=== PATIENT | male | born 1935 | race Caucasian/White ===

== ENCOUNTER 2019-01-22 10:26 | Inpatient (IN) ==
[2019-01-22] MEDS ORDERED: 0.9 % SODIUM CHLORIDE 1,000 ML IV ONE (10:31)
--- NOTE | 2019-01-22 10:39 | Emergency Department Note ---
Altered Mental Status HPI - General Chief Complaint: Altered Mental Status Stated Complaint: altered mental status, fall? Time Seen by Provider: 01/22/19 10:36 Source: patient, EMS Mode of arrival: EMS Limitations: altered mental status - History of Present Illness HPI Narrative: This patient was apparently found down on the floor by his son EMS was called and he was brought to the hospital. Patient has altered mental status and cannot communicate with us. He apparently has a history of dementia. It appears he has been laying on the floor for quite a long time. He has some breakdown in the back. Family thinks they saw him normally yesterday some time. They are not here yet to give us any history. - Related Data Previous Rx's Medication Instructions Recorded lisinopril 5 mg tablet 5 mg PO QDAY #90 tab 02/15/18 finasteride 5 mg tablet 5 mg PO QDAY #90 tab 09/27/18 Allergies Allergy/AdvReac Type Severity Reaction Status Date / Time No Known Drug Allergies Allergy Verified 01/22/19 10:30 Review of Systems Limitations: ROS unobtainable due to patients medical condition Past Medical History - Past Medical History [facility] Narrative: Medical History (Last Reviewed 01/10/17 @ 09:19 by Ankur Cohen PA-C) Past history of chewing tobacco use (Chronic) Vitamin D deficiency (Chronic 08/24/13) Prediabetes (Chronic 09/24/13) Personal history of urinary calculi (Chronic) Nocturia (Chronic) Microalbuminuria (Chronic) Hypertensive renal disease (Chronic 07/04/13) Hyperlipidemia (Chronic) Hyperkalemia (Chronic) Left knee pain (Chronic) Actinic keratosis (Chronic) Back pain (Chronic) BPH loc w urin obs/LUTS (Chronic) CKD (chronic kidney disease), stage III (Chronic) Hypertension, essential (Chronic) DJD (degenerative joint disease) (Chronic) Hypertensive chronic kidney disease (Chronic) Past Surgical History (Last Reviewed 01/10/17 @ 09:19 by EARL Munoz) H/O colonoscopy (Chronic) History of back surgery (Chronic ~2002) History of herniorrhaphy (Chronic ~2006) History of kidney surgery (Chronic ~1960) History of renal stent (Chronic ~1980) Family History (Last Reviewed 01/10/17 @ 09:19 by Ankur Cohen PA-C) Mother Diabetes Hypertension, essential Father CKD (chronic kidney disease) Sister Cancer - Social History smoking status: Smokeless tobacco Physical Exam Patient has some redness and beginning of some breakdown in the thoracic spine region. He is uncooperative for exam. He is holding both arms fairly tight and will not allow range of motion. Range of motion of the hips appears okay. Limitations: altered mental status General appearance: in no apparent distress Head: atraumatic, normocephalic Eye: Present: normal appearance ENT: Present: mucous membranes dry Neck: Absent: tenderness Chest: Present: normal inspection Respiratory: Present: normal lung sounds bilaterally Cardiovascular: Present: regular rate, normal rhythm, normal heart sounds Abdominal: Present: soft. Absent: distention, tenderness Course Vital Signs Temperature 97.9 F 01/22/19 10:27 Pulse Rate 92 H 01/22/19 10:27 Respiratory Rate 18 01/22/19 10:27 Blood Pressure 157/65 01/22/19 10:27 Pulse Oximetry (%) 98 01/22/19 10:27 Temperature 97.9 F 01/22/19 10:27 Pulse Rate 78 01/22/19 13:16 Respiratory Rate 17 01/22/19 13:16 Blood Pressure 137/97 01/22/19 13:16 Pulse Oximetry (%) 100 01/22/19 13:16 Altered Mental Status - MDM Narrative Medical decision making narrative: This patient probably has urosepsis and has been covered with Levaquin and will be admitted to the hospital by Dr. Jeffers. He does have some hydroureter and Dr. Vines said he would be happy to consult on the patient. - Lab Data Lab results reviewed: Yes I reviewed the patient's lab results. Result diagrams: 01/22/19 10:52 01/22/19 10:52 Lab Results 01/22/19 01/22/19 01/22/19 Range/Units 10:30 10:52 10:52 WBC 15.1 H (4.5-11.0) K/mcL RBC 2.93 L (4.50-5.90) M/mcL Hgb 8.1 L (13.5-16.5) g/dL Hct 25.0 L (41.0-55.0) % MCV 85.4 (80.0-100.0) fL MCH 27.8 (26.0-34.0) pg MCHC 32.5 (31.0-36.0) g/dL RDW 14.3 (11.5-14.5) % Plt Count 404 (140-440) K/mcL MPV 6.6 L (7.4-10.4) fL Total Counted 100 Seg Neutrophils % 82 H (38-78) % Band Neutrophils % 1 (0-10) % Lymphocytes % 7 L (15-49) % Monocytes % (Manual) 9 (1-12) % Basophils % (Manual) 1 (0-2) % Platelet Estimate Normal (NORMAL) RBC Morphology Abnorm A (NORMAL) Hypochromasia 2+ A (NONE SEEN) Poikilocytosis 1+ A (NONE SEEN) Ovalocytes Few A (NONE SEEN) RBC Fragments Occ A (NONE SEEN) VBG Lactic Acid (0.5-2.0) mmol/L Sodium 139 (133-145) mmol/L Potassium 5.0 (3.3-5.1) mmol/L Chloride 105 (96-108) mmol/L Carbon Dioxide 16 L (22-30) mmol/L Anion Gap 18.0 H (8-16) BUN 76 H (8-23) mg/dl Creatinine 3.5 H (0.7-1.2) mg/dl GFR Calculation 15 Glucose 114 H (70-105) mg/dL Calcium 11.5 H (8.6-10.4) mg/dl Total Bilirubin 0.3 (0.0-1.0) mg/dL AST 29 (0-37) U/l ALT < 5 (0-40) U/l Alkaline Phosphatase 96 (39-117) U/L Total Creatine Kinase 315 H (24-195) IU/L CK-MB (CK-2) 27.6 H (0-4.9) ng/ml Troponin T (0-0.03) ng/ml Total Protein 6.9 (5.9-8.4) gm/dL Albumin 3.5 (3.2-5.2) gm/dL Globulin 3.4 (2.2-3.7) gm/dL Albumin/Globulin Ratio 1.0 (1.0-2.3) PTH Intact (15-65) pg/ml Urine Color Yellow Urine Appearance Turbid Urine pH 6.0 (5.0-9.0) Ur Specific [place] 1.018 (1.000-1.035) Urine Protein 100 A (NEG) mg/dL Urine Glucose (UA) 50 A (NEG) mg/dL Urine Ketones 5/tr A (NEG) mg/dL Urine Occult Blood >=1.0 A (<0.03) mg/dL Urine Nitrate Neg (NEG) Urine Bilirubin Neg (NEG) mg/dL Urine Urobilinogen Neg (NEG) mg/dL Ur Leukocyte Esterase 75 A (NEG) /uL Urine RBC > 182 H (0-1) /hpf Urine WBC > 182 H (0-4) /hpf Ur Squamous Epith Cells 0 (0-4) /hpf Ur Transition Epith Cell 46 H (0-2) /hpf Urine Bacteria 0 (0) /hpf Urine Yeast (Budding) Many A (0) /hpf Ur Culture Indicated? Yes 01/22/19 01/22/19 01/22/19 Range/Units 10:52 10:52 10:52 WBC (4.5-11.0) K/mcL RBC (4.50-5.90) M/mcL Hgb (13.5-16.5) g/dL Hct (41.0-55.0) % MCV (80.0-100.0) fL MCH (26.0-34.0) pg MCHC (31.0-36.0) g/dL RDW (11.5-14.5) % Plt Count (140-440) K/mcL MPV (7.4-10.4) fL Total Counted Seg Neutrophils % (38-78) % Band Neutrophils % (0-10) % Lymphocytes % (15-49) % Monocytes % (Manual) (1-12) % Basophils % (Manual) (0-2) % Platelet Estimate (NORMAL) RBC Morphology (NORMAL) Hypochromasia (NONE SEEN) Poikilocytosis (NONE SEEN) Ovalocytes (NONE SEEN) RBC Fragments (NONE SEEN) VBG Lactic Acid 2.7 H (0.5-2.0) mmol/L Sodium (133-145) mmol/L Potassium (3.3-5.1) mmol/L Chloride (96-108) mmol/L Carbon Dioxide (22-30) mmol/L Anion Gap (8-16) BUN (8-23) mg/dl Creatinine (0.7-1.2) mg/dl GFR Calculation Glucose (70-105) mg/dL Calcium (8.6-10.4) mg/dl Total Bilirubin (0.0-1.0) mg/dL AST (0-37) U/l ALT (0-40) U/l Alkaline Phosphatase (39-117) U/L Total Creatine Kinase (24-195) IU/L CK-MB (CK-2) (0-4.9) ng/ml Troponin T 0.09 H* (0-0.03) ng/ml Total Protein (5.9-8.4) gm/dL Albumin (3.2-5.2) gm/dL Globulin (2.2-3.7) gm/dL Albumin/Globulin Ratio (1.0-2.3) PTH Intact 10.0 L (15-65) pg/ml Urine Color Urine Appearance Urine pH (5.0-9.0) Ur Specific [place] (1.000-1.035) Urine Protein (NEG) mg/dL Urine Glucose (UA) (NEG) mg/dL Urine Ketones (NEG) mg/dL Urine Occult Blood (<0.03) mg/dL Urine Nitrate (NEG) Urine Bilirubin (NEG) mg/dL Urine Urobilinogen (NEG) mg/dL Ur Leukocyte Esterase (NEG) /uL Urine RBC (0-1) /hpf Urine WBC (0-4) /hpf Ur Squamous Epith Cells (0-4) /hpf Ur Transition Epith Cell (0-2) /hpf Urine Bacteria (0) /hpf Urine Yeast (Budding) (0) /hpf Ur Culture Indicated? 01/22/19 Range/Units 13:52 WBC (4.5-11.0) K/mcL RBC (4.50-5.90) M/mcL Hgb (13.5-16.5) g/dL Hct (41.0-55.0) % MCV (80.0-100.0) fL MCH (26.0-34.0) pg MCHC (31.0-36.0) g/dL RDW (11.5-14.5) % Plt Count (140-440) K/mcL MPV (7.4-10.4) fL Total Counted Seg Neutrophils % (38-78) % Band Neutrophils % (0-10) % Lymphocytes % (15-49) % Monocytes % (Manual) (1-12) % Basophils % (Manual) (0-2) % Platelet Estimate (NORMAL) RBC Morphology (NORMAL) Hypochromasia (NONE SEEN) Poikilocytosis (NONE SEEN) Ovalocytes (NONE SEEN) RBC Fragments (NONE SEEN) VBG Lactic Acid (0.5-2.0) mmol/L Sodium (133-145) mmol/L Potassium (3.3-5.1) mmol/L Chloride (96-108) mmol/L Carbon Dioxide (22-30) mmol/L Anion Gap (8-16) BUN (8-23) mg/dl Creatinine (0.7-1.2) mg/dl GFR Calculation Glucose (70-105) mg/dL Calcium (8.6-10.4) mg/dl Total Bilirubin (0.0-1.0) mg/dL AST (0-37) U/l ALT (0-40) U/l Alkaline Phosphatase (39-117) U/L Total Creatine Kinase (24-195) IU/L CK-MB (CK-2) (0-4.9) ng/ml Troponin T 0.08 H* (0-0.03) ng/ml Total Protein (5.9-8.4) gm/dL Albumin (3.2-5.2) gm/dL Globulin (2.2-3.7) gm/dL Albumin/Globulin Ratio (1.0-2.3) PTH Intact (15-65) pg/ml Urine Color Urine Appearance Urine pH (5.0-9.0) Ur Specific [place] (1.000-1.035) Urine Protein (NEG) mg/dL Urine Glucose (UA) (NEG) mg/dL Urine Ketones (NEG) mg/dL Urine Occult Blood (<0.03) mg/dL Urine Nitrate (NEG) Urine Bilirubin (NEG) mg/dL Urine Urobilinogen (NEG) mg/dL Ur Leukocyte Esterase (NEG) /uL Urine RBC (0-1) /hpf Urine WBC (0-4) /hpf Ur Squamous Epith Cells (0-4) /hpf Ur Transition Epith Cell (0-2) /hpf Urine Bacteria (0) /hpf Urine Yeast (Budding) (0) /hpf Ur Culture Indicated? - Radiology Data Radiology results reviewed: Yes I reviewed the patient's radiology results. Disposition Pt seen by BR[facility]ANER/PA only: No Clinical Impression: Altered mental status, Dementia, UTI (urinary tract infection) Disposition: Xfer As Inpt ([facility]) Condition: Fair Referrals: Ankur Cohen PA-C [Primary Care Provider] - Time of Disposition: 15:01
--- NOTE | 2019-01-22 11:13 | Cat Scan Report ---
CLINICAL INFORMATION: Fall. Altered mental status. TECHNIQUE: Axial noncontrast enhanced images through the brain. Sagittal and coronal reformatted images COMPARISON: None. FINDINGS: No acute intracranial hemorrhage. There is no subdural hematoma. There is no subarachnoid hemorrhage. Basilar cisterns are negative. No intra-axial hemorrhage. There is cerebral atrophy with enlarged ventricles and superficial subarachnoid spaces. There is periventricular white matter abnormality consistent with small vessel ischemic change in this 83-year-old patient. There is a left basal ganglion lacunar Brainstem and cerebellum are negative. No focal intra-axial attenuation abnormality. No calvarial fracture. Temporal bones are negative. No basilar skull fracture. IMPRESSION: 1. Cerebral atrophy and white matter abnormality 2. No acute posttraumatic abnormality. No intracranial hemorrhage Interpreted and Authenticated by: Jovanni Sorenson 01/22/19
[2019-01-22 11:31] LABS: Hemoglobin 8.1 g/dL (13.5-16.5); Mean Cell Volume 85.4 fL (80.0-100.0); Mean Corpuscular HGB Conc 32.5 g/dL (31.0-36.0); Mean Platelet Volume 6.6 fL (7.4-10.4); Platelet Count 404 K/mcL (140-440); RBC 2.93 M/mcL (4.50-5.90); Red Cell Distribution Width 14.3 % (11.5-14.5); WBC 15.1 K/mcL (4.5-11.0)
[2019-01-22 11:54] LABS: ALT/SGPT < 5 U/l (0-40); AST/SGOT 29 U/l (0-37); Albumin 3.5 gm/dL (3.2-5.2); Alkaline Phosphatase 96 U/L (39-117); Bilirubin,Total 0.3 mg/dL (0.0-1.0); Blood Urea Nitrogen 76 mg/dl (8-23); Calcium 11.5 mg/dl (8.6-10.4); Carbon Dioxide 16 mmol/L (22-30); Chloride 105 mmol/L (96-108); Creatine Kinase 315 IU/L (24-195); Creatine Kinase MB 27.6 ng/ml (0-4.9); Globulin 3.4 gm/dL (2.2-3.7); Glomerular Filtration Rate 15; Glucose 114 mg/dL (70-105)
[2019-01-22 11:59] LABS: Band Neutrophils % 1 % (0-10); Basophils % (Manual) 1 % (0-2); Hypochromasia 2+ (NONE SEEN); Lymphocytes % 7 % (15-49); Monocytes % (Manual) 9 % (1-12); Ovalocytes FEW (NONE SEEN); Platelet Estimate NORMAL (NORMAL); Poikilocytosis 1+ (NONE SEEN); RBC Fragments OCC (NONE SEEN); RBC Morphology ABNORM (NORMAL); Segmented Neutrophils % 82 % (38-78)
--- NOTE | 2019-01-22 12:03 | XRay Report ---
INDICATION: Altered level of consciousness TECHNIQUE: Portable AP upright chest x-ray COMPARISON: None FINDINGS:Lungs appear lucent bilaterally consistent with COPD. No acute or focal pulmonary parenchymal infiltrate. No pulmonary parenchymal mass. Heart size and vascularity are normal. Emily and mediastinum are negative. There is no pleural fluid. No acute or focal abnormality. IMPRESSION: 1. Findings consistent with COPD 2. No acute or focal abnormality Interpreted and Authenticated by: Jovanni Sorenson 01/22/19
[2019-01-22 12:27] LABS: Appearance,Urine TURBID; Bacteria,Urine 0 /hpf (0); Bilirubin,Urine NEG (NEG); Color,Urine YELLOW; Culture Indicated,Urine YES; Glucose,Urine (UA) 50 mg/dL (NEG); Ketones,Urine 5/TR mg/dL (NEG); Leukocyte Esterase,Urine 75 /uL (NEG); Nitrate,Urine NEG (NEG); Protein,Urine 100 mg/dL (NEG); Specific Gravity,Urine 1.018 (1.000-1.035); Urine Blood >=1.0 mg/dL (<0.03); Urine Budding Yeast MANY /hpf (0); Urine RBC > 182 /hpf (0-1); Urine Squamous Epithelial Cell 0 /hpf (0-4); Urine Transitional Epi Cells 46 /hpf (0-2); Urine WBC > 182 /hpf (0-4); Urobilinogen,Urine NEG (NEG)
--- NOTE | 2019-01-22 13:03 | Cat Scan Report ---
CLINICAL INFORMATION: Altered level of consciousness. Hematuria TECHNIQUE: Noncontrast enhanced images through the chest, abdomen, pelvis. Sagittal and coronal reformatted images COMPARISON: None. FINDINGS: Chest CT: Suboptimal evaluation as the patient was unable or unwilling to move his hands and arms from in front of his chest. There are noncalcified pulmonary parenchymal nodules: - 7 mm left upper lobe, image 44 - 10 mm left lower lobe, image 55 - 3 mm right upper lobe, image 62 - 4 mm right upper lobe, image 68 - 6 mm right middle lobe, image 96 Fleischner Society recommendations: CT follow-up in 3-6 months and 18-24 months. Probable centrilobular emphysema. No paraseptal emphysema. There is no honeycombing. There is no significant thickening of the intralobular septa. No focal consolidation. There is no significant pleural fluid. There is no pericardial fluid. There is coronary artery calcification. No hilar or mediastinal lymphadenopathy. There is no supraclavicular or axillary adenopathy. Thoracic vertebral bodies are negative. No compression fractures. No lytic lesions. No sternal or rib lesions. ABDOMEN, PELVIS: Liver is negative to the limits of noncontrast enhanced examination. Gallbladder is present. There are calcified gallstones. No dilated bile ducts. Spleen is negative. There is no splenomegaly. Adrenal glands are negative. No detectable pancreatic mass. There is a Moya catheter in the urinary bladder. Urinary bladder is not well evaluated on this noncontrast enhanced examination. Findings are suggestive of enlarged prostate and probable intravesical hematoma. There is no bladder calculus. There are surgical clips in the left side of the pelvis. There is marked hydroureter bilaterally. Ureters are dilated to the level of the urinary bladder. Renal pelves are dilated. Intrarenal collecting systems are mildly dilated. Kidneys are mildly atrophic. No renal or ureteral calculi identified. No detectable renal mass on this noncontrast enhanced examination. There is fecal material within the colon. No dilated small bowel. No evidence for mechanical small bowel obstruction. There is calcification of the abdominal aorta. No abdominal aortic aneurysm. There is no free intraperitoneal fluid. No intra-abdominal abscess. There is no pneumoperitoneum. No biliary or portal venous gas. Lumbar spine is negative. No compression deformities. There are no sclerotic or lytic lesions. Sacrum and pelvis are negative. IMPRESSION: 1. Noncalcified pulmonary parenchymal nodules. Follow-up recommendations given above 2. Hydronephrosis and marked hydroureter. Ureters are dilated to the urinary bladder. 3. There is a Moya catheter within the bladder. Findings are consistent with enlarged prostate and probable intravesical hematoma. 4. Cholelithiasis Interpreted and Authenticated by: Jovanni Sorenson 01/22/19
[2019-01-22] MEDS ORDERED: LEVOFLOXACIN 750 MG/150 ML BAG IV ONE (13:18)
--- NOTE | 2019-01-22 15:02 | Internal Med History&Physical ---
Medical - H&P: [facility] Patient information: Note initiated : 01/22/19 at 3:00 pm Service Date, if different from initiated Date: [] Patient: Chan Tineo a 83 y/o M admitted on for altered mental status, fall?. Chief Complaint: [] History of present illness: Mr. Tineo is a 83 year old M Who presents to the ED after being found down on a hard laminate floor on his back by family. Family last check on him yesterday. Patient was incontinent of stool and urine. Patient was altered in the ED, does have a history of dementia but per family normally conversant and ambulatory. In the ED he was found to have significant elevated creatinine. Last labs to compare 2013. Elevated calcium. Mildly elevated creatinine kinase. Urine concerning for urinary tract infection. Elevated lactate 2.7. Elevated WBCs without bandemia. Imaging revealed different bilateral hydronephrosis and hydroureter, with possible intravesicular hematoma. Patient has had intermittent hematuria for months but refused to see a provider. Case was discussed with Dr. Vines who will see the patient. Unable to gather any history or review of systems from the patient given his altered state. Medical - H&P: [facility] Medical history: Medical History (Last Reviewed 01/10/17 @ 09:19 by Ankur Cohen PA-C) Past history of chewing tobacco use (Chronic) Vitamin D deficiency (Chronic 08/24/13) Prediabetes (Chronic 09/24/13) Personal history of urinary calculi (Chronic) Nocturia (Chronic) Microalbuminuria (Chronic) Hypertensive renal disease (Chronic 07/04/13) Hyperlipidemia (Chronic) Hyperkalemia (Chronic) Left knee pain (Chronic) Actinic keratosis (Chronic) Back pain (Chronic) BPH loc w urin obs/LUTS (Chronic) CKD (chronic kidney disease), stage III (Chronic) Hypertension, essential (Chronic) DJD (degenerative joint disease) (Chronic) Hypertensive chronic kidney disease (Chronic) Past Surgical History (Last Reviewed 01/10/17 @ 09:19 by EARL Munoz) H/O colonoscopy (Chronic) History of back surgery (Chronic ~2002) History of herniorrhaphy (Chronic ~2006) History of kidney surgery (Chronic ~1960) History of renal stent (Chronic ~1980) Family History (Last Reviewed 01/10/17 @ 09:19 by Ankur Cohen PA-C) Mother Diabetes Hypertension, essential Father CKD (chronic kidney disease) Sister Cancer Social history: Smokeless tobacco Lives alone Denies alcohol per notes Medical - H&P: Meds Home Medications Medication Instructions Recorded Confirmed Type lisinopril 5 mg tablet 5 mg PO QDAY #90 tab 02/15/18 Rx finasteride 5 mg tablet 5 mg PO QDAY #90 tab 09/27/18 Rx Allergies Allergy/AdvReac Type Severity Reaction Status Date / Time No Known Drug Allergies Allergy Verified 01/22/19 10:30 Medical - H&P: Exam - Constitutional Vitals: Temp Pulse Resp BP Pulse Ox 97.9 F 78 17 137/97 100 01/22/19 10:27 01/22/19 13:16 01/22/19 13:16 01/22/19 13:16 01/22/19 13:16 Exam: General: Drowsy but awakens, No acute Distress, cachectic Eyes/N/T: PEERL, DMM Head/Neck: neck supple, normocephalic atraumatic CV: RRR, No murmurs, normal s1/s2 Pulm: Clear b/l, no wheezing/rhonchi/rales Abd: soft, nontender, +BS x4 Ext: no clubbing/cyanosis/edema Neuro: drowsy, partially opens eyes to voice, does not follow commands, moves extremities to touch skin: warm/dry Medical - H&P: Reslt - Labs CBC & Chem 7: 01/22/19 10:52 01/22/19 10:52 Labs: Short CBC 01/22/19 Range/Units 10:52 WBC 15.1 H (4.5-11.0) K/mcL Hgb 8.1 L (13.5-16.5) g/dL Hct 25.0 L (41.0-55.0) % Plt Count 404 (140-440) K/mcL BMP 01/22/19 10:52 Sodium 139 Potassium 5.0 Chloride 105 Carbon Dioxide 16 L BUN 76 H Creatinine 3.5 H Glucose 114 H Calcium 11.5 H Cardiac Enzymes 01/22/19 01/22/19 01/22/19 Range/Units 10:52 10:52 13:52 Total Creatine Kinase 315 H (24-195) IU/L CK-MB (CK-2) 27.6 H (0-4.9) ng/ml Troponin T 0.09 H* 0.08 H* (0-0.03) ng/ml Liver Function 01/22/19 Range/Units 10:52 Total Bilirubin 0.3 (0.0-1.0) mg/dL AST 29 (0-37) U/l ALT < 5 (0-40) U/l Alkaline Phosphatase 96 (39-117) U/L Albumin 3.5 (3.2-5.2) gm/dL Urine 01/22/19 Range/Units 10:30 Urine Color Yellow Urine Appearance Turbid Urine pH 6.0 (5.0-9.0) Ur Specific [place] 1.018 (1.000-1.035) Urine Protein 100 A (NEG) mg/dL Urine Glucose (UA) 50 A (NEG) mg/dL - Impressions CT brain no acute but he is atrophy and white matter disease CT abdomen pelvis with significant bilateral hydronephrosis and bilateral hydroureter with suspected intravesicular hematoma Medical - H&P: A/P - Narrative A/P Narrative: A: *Sepsis: 2/2 -lactic acidosis *Encephalopathy, metabolic, superimposed on underlying dementia: -CT brain with atrophy/white matter dz, no acute *DONNA on CKD III: *Metabolic acidosis, A/2 above *Hydronephrosis/hydroureter, b/l (h/o BPH): *UTI: *Hematuria, gross: *Anemia, acute blood loss, on chronic: *Hypercalcemia: Old primary care note shows vitamin D and vitamin C supplements but does not take currently -iPTH low *Elevated CK, mild: 2/2 prolonged time on the hard floor *HTN: on ACEI *BPH: on fnasteride *COPD (): *Dementia: has been on Aricept in past per old note *Generalized weakness/deconditioning/debility: Patient has been declining over the past couple years and especially over the past 2 weeks. -even though the patient lives on his own his son is over at house every day and takes care of his ADLs *Goals of care: Discussed w/son (Jim), continue current treatment, if patient declines or does not respond to Tx then transition to comfort care only. P: -IVFs -Moya in place -Dr. Vines consulted -Willie, pending /UC -hold ACEI for DONNA -monitor H&H -Vit D -clarify home meds -pt/ot -ppx: SCD DNR Jim (son),
[2019-01-22] MEDS ORDERED: LACTATED RINGERS 1,000 ML IV ONE (15:10)
[2019-01-22] MEDS ORDERED: 0.9 % SODIUM CHLORIDE 250 ML IV SCH (15:30)
[2019-01-22] MEDS ORDERED: POTASSIUM CHLORIDE 40 MEQ in DEXTROSE 5% IN WATER 500 ML IV PRN (16:32)
[2019-01-22] MEDS ORDERED: cefTRIAXone 1 GM in DEXTROSE 5% IN WATER 50 ML IV SCH (16:32)
[2019-01-22] MEDS ORDERED: POTASSIUM CHLORIDE 20 MEQ TABLET PO PRN ×2 (16:32)
[2019-01-22] MEDS ORDERED: SENNOSIDES 1 TABLET PO PRN ×2 (16:32→17:53)
[2019-01-22] MEDS ORDERED: POLYETHYLENE GLYCOL 3350 17 GM PACKET PO PRN (16:32)
[2019-01-22] MEDS ORDERED: IPRATROPIUM/ALBUTEROL 3 ML AMPUL.NEB NEB PRN ×2 (16:32→17:53)
[2019-01-22] MEDS ORDERED: MAGNESIUM SULFATE 2 GM/50 ML BAG IV PRN (16:32)
[2019-01-22] MEDS ORDERED: 0.9 % SODIUM CHLORIDE 1,000 ML IV SCH (16:32)
[2019-01-22] MEDS ORDERED: ACETAMINOPHEN 325 MG TABLET PO PRN ×2 (16:32→17:53)
[2019-01-22] MEDS ORDERED: HYDROcodone/APAP 5/325MG TABLET PO PRN ×2 (16:32→17:53)
[2019-01-22] MEDS ORDERED: ONDANSETRON 4 MG/2 ML VIAL IV PRN ×2 (16:32→17:53)
[2019-01-22] MEDS ORDERED: PROCHLORPERAZINE 10 MG/2 ML VIAL IV PRN ×2 (16:32→17:53)
[2019-01-22] MEDS ORDERED: LACTULOSE 20 GM/30 ML ORAL.SOL PO PRN (16:32)
[2019-01-22] MEDS ORDERED: cefTRIAXone 1 GM VIAL IV SCH (17:00)
[2019-01-22] MEDS ORDERED: LORazepam 2 MG/ML VIAL IV PRN (17:17)
[2019-01-22] MEDS ORDERED: LACTOPEROXI/GLUC OXID/POT THIO 1 EACH GEL..EA. TOPICAL PRN (17:17)
[2019-01-22] MEDS: LORazepam 2 MG/ML VIAL IV PRN (17:58)
[2019-01-22] MEDS ORDERED: 0.9 % SODIUM CHLORIDE 10 ML SYRINGE IV SCH ×2 (22:00)
[2019-01-23 03:56] LABS: Hemoglobin 7.6 g/dL (13.5-16.5)
--- NOTE | 2019-01-23 07:39 | Internal Med Progress Note ---
Medical - PN: Subj Patient information: Note initiated : 01/23/19 at 7:33 am Service Date, if different from initiated Date: [] Patient: Chan Tineo 83 y/o M admitted on 01/22/19 for altered mental status, fall?. Chief Complaint: [] Interval history: Mr. Tineo is a 83 year old M Who presents to the ED after being found down on a hard laminate floor on his back by family. Family last check on him yesterday. Patient was incontinent of stool and urine. Patient was altered in the ED, does have a history of dementia but per family normally conversant and ambulatory. In the ED he was found to have significant elevated creatinine. Last labs to compare 2013. Elevated calcium. Mildly elevated creatinine kinase. Urine concerning for urinary tract infection. Elevated lactate 2.7. Elevated WBCs without bandemia. Imaging revealed different bilateral hydronephrosis and hydroureter, with possible intravesicular hematoma. Patient has had intermittent hematuria for months but refused to see a provider. Case was discussed with Dr. Vines who will see the patient. Unable to gather any history or review of systems from the patient given his altered state. Towards the end of the day the patient made comfort care. After further discussions with son. 01/23 Patient sleeping in no acute distress no overnight events. Open mouth breathing. - Constitutional Vitals: Vital Signs Temp Pulse Resp BP Pulse Ox 98.0 F 72 20 155/59 94 01/22/19 16:39 01/22/19 16:20 01/22/19 16:39 01/22/19 16:39 01/22/19 16:39 Period Temp Pulse Resp BP Sys/Crenshaw Pulse Ox Last 24 Hr 97.9 F-98.0 F 67-96 11-26 121-157/59-108 94-100 Intake and Output 01/22/19 01/23/19 01/23/19 21:59 05:59 13:59 Intake Total 467 Output Total 275 Balance 192 Weight 57.606 kg Intake & Output: Intake & Output 01/22/19 01/23/19 01/23/19 21:59 05:59 13:59 Intake Total 467 Output Total 275 Balance 192 Weight 57.606 kg Intake: IV 467 Lactated Ringers 1,000 ml @ 250 317 mls/hr IV .Q4H ONE Rx#: [id number] Output: Urine Catheter Amount 275 Other: Urine Color Dark Red Uretheral (Moya) Dark Red Urine Odor Strong Uretheral (Moya) Strong Exam: General: Unarousable to touch or voice, No acute Distress, cachectic Eyes/N/T: Head/Neck: neck supple, CV: RRR, No murmurs, Pulm: Clear b/l, no wheezing/rhonchi/rales Abd: soft, nontender, +BS x4 Ext: no clubbing/cyanosis/edema Neuro: Unarousable to touch her voice skin: warm/dry Medical - PN: Obj Da - Labs CBC & Chem 7: 01/22/19 16:57 01/22/19 10:52 Labs: Abnormal Lab Results 01/22/19 01/22/19 01/22/19 16:57 13:52 10:52 WBC RBC Hgb 7.6 L Hct 24.0 L MPV Seg Neutrophils % Lymphocytes % RBC Morphology Hypochromasia Poikilocytosis Ovalocytes RBC Fragments VBG Lactic Acid Carbon Dioxide Anion Gap BUN Creatinine Glucose Calcium Total Creatine Kinase CK-MB (CK-2) Troponin T 0.08 H* PTH Intact 10.0 L Urine Protein Urine Glucose (UA) Urine Ketones Urine Occult Blood Ur Leukocyte Esterase Urine RBC Urine WBC Ur Transition Epith Cell Urine Yeast (Budding) 01/22/19 01/22/19 01/22/19 10:52 10:52 10:52 WBC RBC Hgb Hct MPV Seg Neutrophils % Lymphocytes % RBC Morphology Hypochromasia Poikilocytosis Ovalocytes RBC Fragments VBG Lactic Acid 2.7 H Carbon Dioxide 16 L Anion Gap 18.0 H BUN 76 H Creatinine 3.5 H Glucose 114 H Calcium 11.5 H Total Creatine Kinase 315 H CK-MB (CK-2) 27.6 H Troponin T 0.09 H* PTH Intact Urine Protein Urine Glucose (UA) Urine Ketones Urine Occult Blood Ur Leukocyte Esterase Urine RBC Urine WBC Ur Transition Epith Cell Urine Yeast (Budding) 01/22/19 01/22/19 10:52 10:30 WBC 15.1 H RBC 2.93 L Hgb 8.1 L Hct 25.0 L MPV 6.6 L Seg Neutrophils % 82 H Lymphocytes % 7 L RBC Morphology Abnorm A Hypochromasia 2+ A Poikilocytosis 1+ A Ovalocytes Few A RBC Fragments Occ A VBG Lactic Acid Carbon Dioxide Anion Gap BUN Creatinine Glucose Calcium Total Creatine Kinase CK-MB (CK-2) Troponin T PTH Intact Urine Protein 100 A Urine Glucose (UA) 50 A Urine Ketones 5/tr A Urine Occult Blood >=1.0 A Ur Leukocyte Esterase 75 A Urine RBC > 182 H Urine WBC > 182 H Ur Transition Epith Cell 46 H Urine Yeast (Budding) Many A Meds: Medications Albuterol/Ipratropium (Duoneb) 3 ml NEB Q4HP PRN PRN Reason: Shortness Of Breath Lorazepam (Ativan) 0 mg IV Q1HP PRN; Protocol PRN Reason: ANXIETY/SEDATION Last Admin: 01/22/19 17:58 Dose: 2 mg Documented by: Ondansetron HCl (Zofran) 4 mg IV Q4HP PRN PRN Reason: Nausea And Vomiting Prochlorperazine (Compazine) 10 mg IV Q6HP PRN PRN Reason: Nausea And Vomiting Medical - PN: A/P - Time Spent With Patient Total time spent is greater than 50% in coordination of care (as documented) at patient's floor/unit and/or counseling patient: - Narrative A/P Narrative: A: *Sepsis: 2/2 -lactic acidosis *Encephalopathy, metabolic, superimposed on underlying dementia: -CT brain with atrophy/white matter dz, no acute *DONNA on CKD III: *Metabolic acidosis, A/2 above *Hydronephrosis/hydroureter, b/l (h/o BPH): *UTI: *Hematuria, gross: *Anemia, acute blood loss, on chronic: *Hypercalcemia: Old primary care note shows vitamin D and vitamin C supplements but does not take currently -iPTH low *Elevated CK, mild: 2/2 prolonged time on the hard floor *HTN: on ACEI *BPH: on fnasteride *COPD (): *Dementia: has been on Aricept in past per old note *Generalized weakness/deconditioning/debility: Patient has been declining over the past couple years and especially over the past 2 weeks. -even though the patient lives on his own his son is over at house every day and takes care of his ADLs *Goals of care: Discussed w/son (Jim), continue current treatment, if patient declines or does not respond to Tx then transition to comfort care only. -Son was by again last night and after further discussions the patient was transitioned to comfort care only P: -comfort care only with appropriate medications -supportive measures pt/family - Jim (son), Medical - PN: Qual - VTE Deep Vein Thrombosis/Pulmonary Embolism Present on Admission: No
[2019-01-23] MEDS: LORazepam 2 MG/ML VIAL IV PRN (11:12)
[2019-01-24] MEDS: 0.9 % SODIUM CHLORIDE 10 ML SYRINGE IV SCH ×4 (02:33→22:30)
--- NOTE | 2019-01-24 07:59 | Internal Med Progress Note ---
Medical - PN: Subj Patient information: Note initiated : 01/24/19 at 7:58 am Service Date, if different from initiated Date: [] Patient: Chan Tineo a 83 y/o M admitted on 01/22/19 for altered mental status, fall?. Chief Complaint: [] Interval history: Mr. Tineo is a 83 year old M Who presents to the ED after being found down on a hard laminate floor on his back by family. Family last check on him yesterday. Patient was incontinent of stool and urine. Patient was altered in the ED, does have a history of dementia but per family normally conversant and ambulatory. In the ED he was found to have significant elevated creatinine. Last labs to compare 2013. Elevated calcium. Mildly elevated creatinine kinase. Urine concerning for urinary tract infection. Elevated lactate 2.7. Elevated WBCs without bandemia. Imaging revealed different bilateral hydronephrosis and hydroureter, with possible intravesicular hematoma. Patient has had intermittent hematuria for months but refused to see a provider. Case was discussed with Dr. Vines who will see the patient. Unable to gather any history or review of systems from the patient given his altered state. Towards the end of the day the patient made comfort care. After further discussions with son. 01/23 Patient sleeping in no acute distress no overnight events. Open mouth breathing. 01/24 Slightly less responsive today. Open mouth breathing respiratory rate is decreased. - Constitutional Vitals: Vital Signs Temp Pulse Resp BP Pulse Ox 99.3 F H 95 H 22 113/59 87 L 01/24/19 04:11 01/23/19 19:37 01/24/19 04:11 01/24/19 04:11 01/23/19 19:37 Period Temp Pulse Resp BP Sys/Crenshaw Pulse Ox Last 24 Hr 98.3 F-99.3 F 95-96 - 99-113/50-64 81-87 Intake and Output 01/23/19 01/24/19 01/24/19 21:59 05:59 13:59 Output Total 6 Balance -6 Weight 50.984 kg Intake & Output: Intake & Output 01/23/19 01/24/19 01/24/19 21:59 05:59 13:59 Output Total 6 Balance -6 Weight 50.984 kg Output: # of times incontinent of urine 6 Exam: General: Unarousable to touch or voice, No acute Distress, cachectic Eyes/N/T: Head/Neck: neck supple, CV: RRR, No murmurs, Pulm: Clear b/l, no wheezing/rhonchi/rales, open-mouth breathing Abd: soft, nontender, +BS x4 Ext: no clubbing/cyanosis/edema Neuro: Unarousable to voice/touch skin: warm/dry Medical - PN: Obj Da - Labs CBC & Chem 7: 01/22/19 16:57 01/22/19 10:52 Labs: Abnormal Lab Results 01/22/19 01/22/19 01/22/19 16:57 13:52 10:52 WBC RBC Hgb 7.6 L Hct 24.0 L MPV Seg Neutrophils % Lymphocytes % RBC Morphology Hypochromasia Poikilocytosis Ovalocytes RBC Fragments VBG Lactic Acid Carbon Dioxide Anion Gap BUN Creatinine Glucose Calcium Total Creatine Kinase CK-MB (CK-2) Troponin T 0.08 H* PTH Intact 10.0 L Urine Protein Urine Glucose (UA) Urine Ketones Urine Occult Blood Ur Leukocyte Esterase Urine RBC Urine WBC Ur Transition Epith Cell Urine Yeast (Budding) 01/22/19 01/22/19 01/22/19 10:52 10:52 10:52 WBC RBC Hgb Hct MPV Seg Neutrophils % Lymphocytes % RBC Morphology Hypochromasia Poikilocytosis Ovalocytes RBC Fragments VBG Lactic Acid 2.7 H Carbon Dioxide 16 L Anion Gap 18.0 H BUN 76 H Creatinine 3.5 H Glucose 114 H Calcium 11.5 H Total Creatine Kinase 315 H CK-MB (CK-2) 27.6 H Troponin T 0.09 H* PTH Intact Urine Protein Urine Glucose (UA) Urine Ketones Urine Occult Blood Ur Leukocyte Esterase Urine RBC Urine WBC Ur Transition Epith Cell Urine Yeast (Budding) 01/22/19 01/22/19 10:52 10:30 WBC 15.1 H RBC 2.93 L Hgb 8.1 L Hct 25.0 L MPV 6.6 L Seg Neutrophils % 82 H Lymphocytes % 7 L RBC Morphology Abnorm A Hypochromasia 2+ A Poikilocytosis 1+ A Ovalocytes Few A RBC Fragments Occ A VBG Lactic Acid Carbon Dioxide Anion Gap BUN Creatinine Glucose Calcium Total Creatine Kinase CK-MB (CK-2) Troponin T PTH Intact Urine Protein 100 A Urine Glucose (UA) 50 A Urine Ketones 5/tr A Urine Occult Blood >=1.0 A Ur Leukocyte Esterase 75 A Urine RBC > 182 H Urine WBC > 182 H Ur Transition Epith Cell 46 H Urine Yeast (Budding) Many A Meds: Medications Albuterol/Ipratropium (Duoneb) 3 ml NEB Q4HP PRN PRN Reason: Shortness Of Breath Lorazepam (Ativan) 0 mg IV Q1HP PRN; Protocol PRN Reason: ANXIETY/SEDATION Last Admin: 01/23/19 11:12 Dose: 2 mg Documented by: Morphine Sulfate (Morphine) 1 - 4 mg IV Q2HP PRN PRN Reason: PAIN LEVEL > 6 Last Admin: 01/24/19 02:29 Dose: 2 mg Documented by: Ondansetron HCl (Zofran) 4 mg IV Q4HP PRN PRN Reason: Nausea And Vomiting Prochlorperazine (Compazine) 10 mg IV Q6HP PRN PRN Reason: Nausea And Vomiting Sodium Chloride (Saline Flush) 10 ml IV Q8 WEST Last Admin: 01/24/19 06:01 Dose: 10 ml Documented by: Medical - PN: A/P - Time Spent With Patient Total time spent is greater than 50% in coordination of care (as documented) at patient's floor/unit and/or counseling patient: - Narrative A/P Narrative: A: *Sepsis: 2/2 -lactic acidosis *Encephalopathy, metabolic, superimposed on underlying dementia: -CT brain with atrophy/white matter dz, no acute *DONNA on CKD III: *Metabolic acidosis, A/2 above *Hydronephrosis/hydroureter, b/l (h/o BPH): *UTI: *Hematuria, gross: *Anemia, acute blood loss, on chronic: *Hypercalcemia: Old primary care note shows vitamin D and vitamin C supplements but does not take currently -iPTH low *Elevated CK, mild: 2/2 prolonged time on the hard floor *HTN: on ACEI *BPH: on fnasteride *COPD (): *Dementia: has been on Aricept in past per old note *Generalized weakness/deconditioning/debility: Patient has been declining over the past couple years and especially over the past 2 weeks. -even though the patient lives on his own his son is over at house every day and takes care of his ADLs *Goals of care: Discussed w/son (Jim), continue current treatment, if patient declines or does not respond to Tx then transition to comfort care only. -Son was by again last night and after further discussions the patient was transitioned to comfort care only P: -comfort care only with appropriate medications -supportive measures pt/family - Jim (son), Medical - PN: Qual - VTE Deep Vein Thrombosis/Pulmonary Embolism Present on Admission: No
[2019-01-24] MEDS: LORazepam 2 MG/ML VIAL IV PRN (12:38)
[2019-01-25] MEDS: 0.9 % SODIUM CHLORIDE 10 ML SYRINGE IV SCH ×3 (05:05→22:10)
--- NOTE | 2019-01-25 06:44 | Internal Med Progress Note ---
Medical - PN: Subj Patient information: Note initiated : 01/25/19 at 6:43 am Service Date, if different from initiated Date: [] Patient: Chan Tineo 83 y/o M admitted on 01/22/19 for altered mental status, fall?. Chief Complaint: [] Interval history: Mr. Tineo is a 83 year old M Who presents to the ED after being found down on a hard laminate floor on his back by family. Family last check on him yesterday. Patient was incontinent of stool and urine. Patient was altered in the ED, does have a history of dementia but per family normally conversant and ambulatory. In the ED he was found to have significant elevated creatinine. Last labs to compare 2013. Elevated calcium. Mildly elevated creatinine kinase. Urine concerning for urinary tract infection. Elevated lactate 2.7. Elevated WBCs without bandemia. Imaging revealed different bilateral hydronephrosis and hydroureter, with possible intravesicular hematoma. Patient has had intermittent hematuria for months but refused to see a provider. Case was discussed with Dr. Vines who will see the patient. Unable to gather any history or review of systems from the patient given his altered state. Towards the end of the day the patient made comfort care. After further discussions with son. 01/23 Patient sleeping in no acute distress no overnight events. Open mouth breathing. 01/24 Slightly less responsive today. Open mouth breathing respiratory rate is decreased. 01/25 Unresponsive. Appears to be no acute distress. Comfort measures in place. - Constitutional Vitals: Vital Signs Temp Pulse Resp BP Pulse Ox 99.3 F H 108 H 22 113/59 85 L 01/24/19 04:11 01/24/19 19:34 01/24/19 04:11 01/24/19 04:11 01/24/19 19:34 Period Temp Pulse Resp BP Sys/Crenshaw Pulse Ox Last 24 Hr 108 85 Intake and Output 01/24/19 01/25/19 01/25/19 21:59 05:59 13:59 Output Total 1 2 Balance -1 -2 Intake & Output: Intake & Output 01/24/19 01/25/19 01/25/19 21:59 05:59 13:59 Output Total 1 2 Balance -1 -2 Output: # of times incontinent of urine 1 2 Other: Urine Appearance Hematuria Exam: General: Unarousable to touch or voice, No acute Distress, cachectic Eyes/N/T: Head/Neck: neck supple, CV: RRR, No murmurs, Pulm: Clear b/l, no wheezing/rhonchi/rales, open-mouth breathing Abd: soft, nontender, +BS x4 Ext: no clubbing/cyanosis/edema Neuro: Unarousable to voice/touch skin: warm/dry Medical - PN: Obj Da - Labs CBC & Chem 7: 01/22/19 16:57 01/22/19 10:52 Labs: Abnormal Lab Results 01/22/19 01/22/19 01/22/19 16:57 13:52 10:52 WBC RBC Hgb 7.6 L Hct 24.0 L MPV Seg Neutrophils % Lymphocytes % RBC Morphology Hypochromasia Poikilocytosis Ovalocytes RBC Fragments VBG Lactic Acid Carbon Dioxide Anion Gap BUN Creatinine Glucose Calcium Total Creatine Kinase CK-MB (CK-2) Troponin T 0.08 H* PTH Intact 10.0 L Urine Protein Urine Glucose (UA) Urine Ketones Urine Occult Blood Ur Leukocyte Esterase Urine RBC Urine WBC Ur Transition Epith Cell Urine Yeast (Budding) 01/22/19 01/22/19 01/22/19 10:52 10:52 10:52 WBC RBC Hgb Hct MPV Seg Neutrophils % Lymphocytes % RBC Morphology Hypochromasia Poikilocytosis Ovalocytes RBC Fragments VBG Lactic Acid 2.7 H Carbon Dioxide 16 L Anion Gap 18.0 H BUN 76 H Creatinine 3.5 H Glucose 114 H Calcium 11.5 H Total Creatine Kinase 315 H CK-MB (CK-2) 27.6 H Troponin T 0.09 H* PTH Intact Urine Protein Urine Glucose (UA) Urine Ketones Urine Occult Blood Ur Leukocyte Esterase Urine RBC Urine WBC Ur Transition Epith Cell Urine Yeast (Budding) 01/22/19 01/22/19 10:52 10:30 WBC 15.1 H RBC 2.93 L Hgb 8.1 L Hct 25.0 L MPV 6.6 L Seg Neutrophils % 82 H Lymphocytes % 7 L RBC Morphology Abnorm A Hypochromasia 2+ A Poikilocytosis 1+ A Ovalocytes Few A RBC Fragments Occ A VBG Lactic Acid Carbon Dioxide Anion Gap BUN Creatinine Glucose Calcium Total Creatine Kinase CK-MB (CK-2) Troponin T PTH Intact Urine Protein 100 A Urine Glucose (UA) 50 A Urine Ketones 5/tr A Urine Occult Blood >=1.0 A Ur Leukocyte Esterase 75 A Urine RBC > 182 H Urine WBC > 182 H Ur Transition Epith Cell 46 H Urine Yeast (Budding) Many A Meds: Medications Albuterol/Ipratropium (Duoneb) 3 ml NEB Q4HP PRN PRN Reason: Shortness Of Breath Lorazepam (Ativan) 0 mg IV Q1HP PRN; Protocol PRN Reason: ANXIETY/SEDATION Last Admin: 01/24/19 12:38 Dose: 1 mg Documented by: Morphine Sulfate (Morphine) 1 - 4 mg IV Q2HP PRN PRN Reason: PAIN LEVEL > 6 Last Admin: 01/25/19 01:47 Dose: 2 mg Documented by: Ondansetron HCl (Zofran) 4 mg IV Q4HP PRN PRN Reason: Nausea And Vomiting Prochlorperazine (Compazine) 10 mg IV Q6HP PRN PRN Reason: Nausea And Vomiting Sodium Chloride (Saline Flush) 10 ml IV Q8 WEST Last Admin: 01/25/19 05:05 Dose: 10 ml Documented by: Medical - PN: A/P - Time Spent With Patient Total time spent is greater than 50% in coordination of care (as documented) at patient's floor/unit and/or counseling patient: - Narrative A/P Narrative: A: *Sepsis: 2/2 -lactic acidosis *Encephalopathy, metabolic, superimposed on underlying dementia: -CT brain with atrophy/white matter dz, no acute *DONNA on CKD III: *Metabolic acidosis, A/2 above *Hydronephrosis/hydroureter, b/l (h/o BPH): *UTI: *Hematuria, gross: *Anemia, acute blood loss, on chronic: *Hypercalcemia: Old primary care note shows vitamin D and vitamin C supplements but does not take currently -iPTH low *Elevated CK, mild: 2/2 prolonged time on the hard floor *HTN: on ACEI *BPH: on finasteride *COPD (): *Dementia: has been on Aricept in past per old note *Generalized weakness/deconditioning/debility: Patient has been declining over the past couple years and especially over the past 2 weeks. -even though the patient lives on his own his son is over at house every day and takes care of his ADLs *Goals of care: Discussed w/son (Jim), continue current treatment, if patient declines or does not respond to Tx then transition to comfort care only. -Son was by again last night and after further discussions the patient was transitioned to comfort care only P: -comfort care only with appropriate medications -supportive measures pt/family - Jim (son), Medical - PN: Qual - VTE Deep Vein Thrombosis/Pulmonary Embolism Present on Admission: No
--- NOTE | 2019-01-26 07:25 | Internal Med Progress Note ---
Medical - PN: Subj Patient information: Note initiated : 01/26/19 at 7:24 am Service Date, if different from initiated Date: [] Patient: Chan Tineo 83 y/o M admitted on 01/22/19 for altered mental status, fall?. Chief Complaint: [] Interval history: Mr. Tineo is a 83 year old M Who presents to the ED after being found down on a hard laminate floor on his back by family. Family last check on him yesterday. Patient was incontinent of stool and urine. Patient was altered in the ED, does have a history of dementia but per family normally conversant and ambulatory. In the ED he was found to have significant elevated creatinine. Last labs to compare 2013. Elevated calcium. Mildly elevated creatinine kinase. Urine concerning for urinary tract infection. Elevated lactate 2.7. Elevated WBCs without bandemia. Imaging revealed different bilateral hydronephrosis and hydroureter, with possible intravesicular hematoma. Patient has had intermittent hematuria for months but refused to see a provider. Case was discussed with Dr. Vines who will see the patient. Unable to gather any history or review of systems from the patient given his altered state. Towards the end of the day the patient made comfort care. After further discussions with son. 01/23 Patient sleeping in no acute distress no overnight events. Open mouth breathing. 01/24 Slightly less responsive today. Open mouth breathing respiratory rate is decreased. 01/25 Unresponsive. Appears to be no acute distress. Comfort measures in place. 01/26 Unresponsive. no acute distress. Breathing becoming a bit more labored. Comfort measures in place. - Constitutional Vitals: Vital Signs Temp Pulse Resp BP Pulse Ox 98.2 F 103 H 24 H 128/65 94 01/26/19 06:58 01/25/19 18:55 01/26/19 06:58 01/26/19 06:58 01/26/19 06:58 Period Temp Pulse Resp BP Sys/Crenshaw Pulse Ox Last 24 Hr 98.2 F-98.3 F 103 16-24 110-128/56-65 86-94 Intake and Output 01/25/19 01/26/19 01/26/19 21:59 05:59 13:59 Intake Total 0 Output Total 2 3 1 Balance -2 -3 -1 Intake & Output: Intake & Output 0801/26/19 01/26/19 21:59 05:59 13:59 Intake Total 0 Output Total 2 3 1 Balance -2 -3 -1 Intake: Oral 0 Output: # of times incontinent of urine 2 3 1 Exam: General: Unarousable to touch or voice, No acute Distress, cachectic Eyes/N/T: Head/Neck: neck supple, CV: RRR, No murmurs, Pulm: Mild rhonchi bilaterally, open-mouth breathing, breathing becoming more labored Abd: soft, nontender, +BS x4 Ext: no clubbing/cyanosis/edema Neuro: Unarousable to voice/touch skin: warm/dry Medical - PN: Obj Da - Labs CBC & Chem 7: 01/22/19 16:57 01/22/19 10:52 Meds: Medications Albuterol/Ipratropium (Duoneb) 3 ml NEB Q4HP PRN PRN Reason: Shortness Of Breath Lorazepam (Ativan) 0 mg IV Q1HP PRN; Protocol PRN Reason: ANXIETY/SEDATION Last Admin: 01/24/19 12:38 Dose: 1 mg Documented by: Morphine Sulfate (Morphine) 1 - 4 mg IV Q2HP PRN PRN Reason: PAIN LEVEL > 6 Last Admin: 01/26/19 02:33 Dose: 2 mg Documented by: Ondansetron HCl (Zofran) 4 mg IV Q4HP PRN PRN Reason: Nausea And Vomiting Prochlorperazine (Compazine) 10 mg IV Q6HP PRN PRN Reason: Nausea And Vomiting Sodium Chloride (Saline Flush) 10 ml IV Q8 WEST Last Admin: 01/25/19 22:10 Dose: 10 ml Documented by: Medical - PN: A/P - Time Spent With Patient Total time spent is greater than 50% in coordination of care (as documented) at patient's floor/unit and/or counseling patient: - Narrative A/P Narrative: A: *Sepsis: 2/2 -lactic acidosis *Encephalopathy, metabolic, superimposed on underlying dementia: -CT brain with atrophy/white matter dz, no acute *DONNA on CKD III: *Metabolic acidosis, A/2 above *Hydronephrosis/hydroureter, b/l (h/o BPH): *UTI: *Hematuria, gross: *Anemia, acute blood loss, on chronic: *Hypercalcemia: Old primary care note shows vitamin D and vitamin C supplements but does not take currently -iPTH low *Elevated CK, mild: 2/2 prolonged time on the hard floor *HTN: on ACEI *BPH: on finasteride *COPD (): *Dementia: has been on Aricept in past per old note *Generalized weakness/deconditioning/debility: Patient has been declining over the past couple years and especially over the past 2 weeks. -even though the patient lives on his own his son is over at house every day and takes care of his ADLs *Goals of care: Discussed w/son (Jim), continue current treatment, if patient declines or does not respond to Tx then transition to comfort care only. -Son was by again last night and after further discussions the patient was transitioned to comfort care only P: -comfort care only with appropriate medications -supportive measures pt/family - Jim (son), Medical - PN: Qual - VTE Deep Vein Thrombosis/Pulmonary Embolism Present on Admission: No
[2019-01-26] MEDS: 0.9 % SODIUM CHLORIDE 10 ML SYRINGE IV SCH ×3 (08:20→21:58)
[2019-01-27] MEDS: 0.9 % SODIUM CHLORIDE 10 ML SYRINGE IV SCH (03:59)
--- NOTE | 2019-01-27 06:21 | Internal Med Progress Note ---
Medical - PN: Subj Patient information: Note initiated : 01/27/19 at 6:20 am Service Date, if different from initiated Date: [] Patient: Chan Tineo 83 y/o M admitted on 01/22/19 for altered mental status, fall?. Chief Complaint: [] Interval history: Mr. Tineo is a 83 year old M Who presents to the ED after being found down on a hard laminate floor on his back by family. Family last check on him yesterday. Patient was incontinent of stool and urine. Patient was altered in the ED, does have a history of dementia but per family normally conversant and ambulatory. In the ED he was found to have significant elevated creatinine. Last labs to compare 2013. Elevated calcium. Mildly elevated creatinine kinase. Urine concerning for urinary tract infection. Elevated lactate 2.7. Elevated WBCs without bandemia. Imaging revealed different bilateral hydronephrosis and hydroureter, with possible intravesicular hematoma. Patient has had intermittent hematuria for months but refused to see a provider. Case was discussed with Dr. Vines who will see the patient. Unable to gather any history or review of systems from the patient given his altered state. Towards the end of the day the patient made comfort care. After further discussions with son. 01/23 Patient sleeping in no acute distress no overnight events. Open mouth breathing. 01/24 Slightly less responsive today. Open mouth breathing respiratory rate is decreased. 01/25 Unresponsive. Appears to be no acute distress. Comfort measures in place. 01/26 Unresponsive. no acute distress. Breathing becoming a bit more labored. Comfort measures in place. - Constitutional Vitals: Vital Signs Temp Pulse Resp BP Pulse Ox 98.2 F 102 H 16 104/54 80 L 01/26/19 06:58 01/26/19 20:00 01/26/19 20:00 01/26/19 20:00 01/26/19 20:00 Period Temp Pulse Resp BP Sys/Crenshaw Pulse Ox Last 24 Hr 98.2 F 102-102 16- 104-128/54-65 80-94 Intake and Output 01/26/19 01/27/19 01/27/19 21:59 05:59 13:59 Intake Total 0 Output Total 2 4 Balance -2 -4 Intake & Output: Intake & Output 01/26/19 01/27/19 01/27/19 21:59 05:59 13:59 Intake Total 0 Output Total 2 4 Balance -2 -4 Intake: Oral 0 Output: # of times incontinent of urine 2 4 Exam: General: Unarousable to touch or voice, No acute Distress, cachectic Eyes/N/T: Head/Neck: neck supple, CV: RRR, No murmurs, Pulm: Mild rhonchi bilaterally, open-mouth breathing, breathing becoming more labored Abd: soft, nontender, +BS x4 Ext: no clubbing/cyanosis/edema Neuro: Unarousable to voice/touch skin: warm/dry Medical - PN: Obj Da - Labs CBC & Chem 7: 01/22/19 16:57 01/22/19 10:52 Meds: Medications Albuterol/Ipratropium (Duoneb) 3 ml NEB Q4HP PRN PRN Reason: Shortness Of Breath Lorazepam (Ativan) 0 mg IV Q1HP PRN; Protocol PRN Reason: ANXIETY/SEDATION Last Admin: 01/24/19 12:38 Dose: 1 mg Documented by: Morphine Sulfate (Morphine) 1 - 4 mg IV Q2HP PRN PRN Reason: PAIN LEVEL > 6 Last Admin: 01/27/19 03:58 Dose: 2 mg Documented by: Ondansetron HCl (Zofran) 4 mg IV Q4HP PRN PRN Reason: Nausea And Vomiting Prochlorperazine (Compazine) 10 mg IV Q6HP PRN PRN Reason: Nausea And Vomiting Sodium Chloride (Saline Flush) 10 ml IV Q8 WEST Last Admin: 01/27/19 03:59 Dose: 10 ml Documented by: Medical - PN: A/P - Time Spent With Patient Total time spent is greater than 50% in coordination of care (as documented) at patient's floor/unit and/or counseling patient: - Narrative A/P Narrative: A: *Sepsis: 2/2 -lactic acidosis *Encephalopathy, metabolic, superimposed on underlying dementia: -CT brain with atrophy/white matter dz, no acute *DONNA on CKD III: *Metabolic acidosis, A/2 above *Hydronephrosis/hydroureter, b/l (h/o BPH): *UTI: *Hematuria, gross: *Anemia, acute blood loss, on chronic: *Hypercalcemia: Old primary care note shows vitamin D and vitamin C supplements but does not take currently -iPTH low *Elevated CK, mild: 2/2 prolonged time on the hard floor *HTN: on ACEI *BPH: on finasteride *COPD (): *Dementia: has been on Aricept in past per old note *Generalized weakness/deconditioning/debility: Patient has been declining over the past couple years and especially over the past 2 weeks. -even though the patient lives on his own his son is over at house every day and takes care of his ADLs *Goals of care: Discussed w/son (Jim), continue current treatment, if patient declines or does not respond to Tx then transition to comfort care only. -Son was by again last night and after further discussions the patient was transitioned to comfort care only P: -comfort care only with appropriate medications -supportive measures pt/family - Jim (son), Medical - PN: Qual - VTE Deep Vein Thrombosis/Pulmonary Embolism Present on Admission: No
--- NOTE | 2019-01-27 08:23 | Death Note ---
Discharge Sum: Prov - Provider Patient information: Note initiated : 01/27/19 at 8:20 am Service Date, if different from initiated Date: [] Patient: Chan Tineo a 83 y/o M admitted on 01/22/19 for altered mental status, fall?. Chief Complaint: [] Primary care physician: Ankur Cohen Consults: 01/22/19 Consult to Physician [CONS] Stat Comment: Consulting Provider: Chaz Jeffers Reason For Exam: Physician to Consult Discharge Sum: Diag - PCOD Cause of : Renal failure Discharge Sum: Summary - Date and Time Date of admission: 01/22/19 16:18 Date of : 01/27/19 Time of : 07:36 - Summary Details: Mr. Tineo is a 83 year old M Who presents to the ED after being found down on a hard laminate floor on his back by family. Family last check on him yesterday. Patient was incontinent of stool and urine. Patient was altered in the ED, does have a history of dementia but per family normally conversant and ambulatory. In the ED he was found to have significant elevated creatinine. Last labs to compare 2013. Elevated calcium. Mildly elevated creatinine kinase. Urine concerning for urinary tract infection. Elevated lactate 2.7. Elevated WBCs without bandemia. Imaging revealed different bilateral hydronephrosis and hydroureter, with possible intravesicular hematoma. Patient has had intermittent hematuria for months but refused to see a provider. Case was discussed with Dr. Vines who will see the patient. Unable to gather any history or review of systems from the patient given his altered state. Towards the end of the day the patient made comfort care. After further discussions with son. 01/23 Patient sleeping in no acute distress no overnight events. Open mouth breathing. 01/24 Slightly less responsive today. Open mouth breathing respiratory rate is decreased. 01/25 Unresponsive. Appears to be no acute distress. Comfort measures in place. 01/26 Unresponsive. no acute distress. Breathing becoming a bit more labored. Comfort measures in place. A: *Sepsis: 2/2 -lactic acidosis *UTI: *Encephalopathy, metabolic, superimposed on underlying dementia: -CT brain with atrophy/white matter dz, no acute *DONNA on CKD III: *Metabolic acidosis, A/2 above *Hydronephrosis/hydroureter, b/l (h/o BPH): *Hematuria, gross: *Anemia, acute blood loss, on chronic: *Hypercalcemia: Old primary care note shows vitamin D and vitamin C supplements but does not take currently -iPTH low *Elevated CK, mild: 2/2 prolonged time on the hard floor *HTN: on ACEI *BPH: on finasteride *COPD (): *Dementia: has been on Aricept in past per old note *Generalized weakness/deconditioning/debility: Patient has been declining over the past couple years and especially over the past 2 weeks. -even though the patient lives on his own his son is over at house every day and takes care of his ADLs - Additional Data Attending physician: Chaz Jeffers
[2019-01-29 06:48] LABS: Vit D 1,25 Dihydroxy 43 pg/mL (18-72)
== END 2019-01-27 07:36 | disposition expired | DRG 871 ==
LOC: ED 10:26 → ICU 16:18 → MEDSUR 01-24 17:50
PROVIDERS: ADMIT Internal Medicine; ATTEND Internal Medicine